=== PATIENT | female | born 1960 | race African-American/Black ===

== ENCOUNTER 2020-03-04 15:43 | Emergency (ER) | payer OTHER ==
[~2020-03-04] VITALS: Ht 170.2 cm; Wt 62.6 kg
[~2020-03-04 15:43] MED LIST: ACET-787 PO; ASPI81EC97 PO; ATOR10TA PO; ERGO500028 PO; HYPERTENSION MED; LISI-420 PO; METF500T2 PO; PANT40EC PO; ZOLP5TAB1 PO; [UNRECOGNIZED DRUG - CODE] PO
[2020-03-04 16:06] VITALS: BP 150/101
--- NOTE | 2020-03-04 16:12 | NUR ---
60 Y/O FEMALE C/O LEFT FOOT PAIN S/P KICKING DOOR YESTERDAY. PAIN IS 8/10, PATIENT DENIES TAKING ANY MEDS TODAY FOR PAIN. STATES "I HEARD SOMETHING CRACK AFTER I KICKED DOOR". OBVIOUS DEFORMITY NOTED. BILAT PEDAL PULSES PRESENT. SKIN INTACT.
--- NOTE | 2020-03-04 16:19 | NUR ---
XRAY AT BEDSIDE
[2020-03-04] MEDS ORDERED: KETOROLAC 60 MG/2 ML VIAL IM ONE (16:30)
--- NOTE | 2020-03-04 17:00 | NUR ---
PT WAS GIVEN CRUTCHES, CRUTCHES ADJ. TO PT HEIGHT, PT STATES THEY AL READY KNOW HOW TO USE CRUTCHES, PT PERFORMED PROPPER DEMENSTRATION OF CRUTCHES. RN AND PA NOTIFIED.
[2020-03-04 17:13] VITALS: BP 150/101
== END 2020-03-04 17:14 | disposition home or self-care (01) ==
LOC: MED 15:43
DX: M79.672 Pain in left foot (principal); J45.909 Unspecified asthma, uncomplicated; I10 Essential (primary) hypertension; E07.9 Disorder of thyroid, unspecified; Z90.710 Acquired absence of both cervix and uterus; Z98.890 Other specified postprocedural states; Z79.82 Long term (current) use of aspirin; Z79.899 Other long term (current) drug therapy; Z88.1 Allergy status to other antibiotic agents
CPT/HCPCS: 73630; 96372; 99283; J1885; Q0092

== ENCOUNTER 2022-06-10 12:14 | Emergency (ER) | payer OTHER ==
[~2022-06-10] VITALS: Ht 167.6 cm; Wt 78.6 kg
[~2022-06-10 12:14] MED LIST changes: -ACET-787 PO; +HYDR-5191 PO; -LISI-420 PO; +LISI-487 PO; +METF-1139 PO; -METF500T2 PO
[2022-06-10 12:51] VITALS: BP 169/86
--- NOTE | 2022-06-10 13:00 | NUR ---
62 Y/O FEMAL BIB WITH DAUGHTER C/O LEFT FOOT& CALF PAIN & SWELLING X 5 DAYS. NO REDNESS NOTED. DENIES ANY NUMBNESS AND TINGLING ON THE DISTAL EXTREMITIES, DIETETIC INTERN LESS THAN 3 SECONDS, DISTAL PULSES PALPABLE. PMH: ASTHMA ALLERGY: AMOXICILLIN
--- NOTE | 2022-06-10 13:43 | NUR ---
US AT BEDSIDE
--- NOTE | 2022-06-10 15:10 | NUR ---
PT STATES THAT SHE'S " GONNA GO CAUSE SHE HAS TO SAFETY INTERN HER KIDS" SEEN WALKING OUT OF THE ED, GAY MEJIA MADE AWARE
== END 2022-06-10 15:10 | disposition left against medical advice (07) ==
LOC: MED 12:14
DX: R60.0 Localized edema (principal); J45.909 Unspecified asthma, uncomplicated; I10 Essential (primary) hypertension; E07.9 Disorder of thyroid, unspecified; Z79.899 Other long term (current) drug therapy; Z88.1 Allergy status to other antibiotic agents; Z79.82 Long term (current) use of aspirin
CPT/HCPCS: 93971; 99284; Q0092